=== PATIENT | female | born 1950 | race Caucasian/White ===

== ENCOUNTER 2017-03-11 10:12 | Outpatient (CLI) | payer MEDICARE, OTHER | END 2017-03-11 10:13 | disposition home or self-care (01) | DX: Z12.31 Encounter for screening mammogram for malignant neoplasm of breast (principal) ==

== ENCOUNTER 2018-04-12 10:46 | Outpatient (CLI) | payer MEDICARE, OTHER ==
[2018-04-12 11:14] LABS: BASOPHILS # (AUTO) 0.1 10^3/uL (0.0-0.1); BASOPHILS % (AUTO) 0.9 %; EOSINOPHILS # (AUTO) 0.1 10^3/uL (0.0-0.7); EOSINOPHILS % (AUTO) 1.5 %; HGB - HEMOGLOBIN 14.2 g/dL (12.0-16.0); LYMPHOCYTES # (AUTO) 1.6 10^3/uL (1.5-3.5); MEAN CORPUSCULAR HGB CONC 33.5 g/dL (32.0-36.0); MEAN CORPUSCULAR VOLUME 92.4 fL (81.0-99.0); MONOCYTES # (AUTO) 0.6 10^3/uL (0.0-1.0); MONOCYTES % (AUTO) 8.2 %; NEUTROPHILS % (AUTO) 67.4 %; PLT - PLATELET COUNT 260 10^3/uL (130-450); RED BLOOD COUNT 4.59 10^6/uL (4.20-5.40); RED CELL DISTRIBUTION WIDTH 14.1 % (12.0-15.0); WHITE BLOOD COUNT 7.4 x10^3/uL (4.8-10.8)
[2018-04-12 11:31] LABS: CREATININE,URINE 31.4 mg/dL
[2018-04-12 11:39] LABS: HB2 TOTAL 15.5 g/dL; HEMOGLOBIN A1C 0.9 g/dL; HEMOGLOBIN A1C % 7.5 % (4.6-6.2)
[2018-04-12 11:52] LABS: MICROALBUMIN,URINE < 0.3 mg/dL (0-300.0)
[2018-04-12 12:16] LABS: ALBUMIN 4.2 g/dL (3.2-5.5); ALBUMIN/GLOBULIN RATIO 1.4 (1.0-2.2); ALKALINE PHOSPHATASE 105 IU/L (42-121); ALT ALANINE AMINOTRANSFERASE 23 IU/L (10-60); AST ASPARTATE AMINOTRANSFERASE 23 IU/L (10-42); BILIRUBIN,TOTAL 0.7 mg/dL (0.2-1.0); BUN - BLOOD UREA NITROGEN 15 mg/dL (6-20); CALCIUM 9.4 mg/dL (8.5-10.3); CARBON DIOXIDE - CO2 25 mmol/L (21-32); CHLORIDE 100 mmol/L (101-111); CHOLESTEROL 229 mg/dL; CREATININE 0.5 mg/dL (0.4-1.0); GFR - MDRD 123 (>89); GLUCOSE 150 mg/dL (70-100); HDL CHOLESTEROL 46 mg/dL; LDL CHOLESTEROL,CALCULATED 137 mg/dL; SODIUM 135 mmol/L (135-145); TOTAL PROTEIN 7.1 g/dL (6.7-8.2); VLDL CHOLESTEROL 46 mg/dL
[2018-04-12 12:27] LABS: THYROID STIMULATING HORMONE 2.06 uIU/mL (0.34-5.60)
== END 2018-04-12 10:47 | disposition home or self-care (01) ==
LOC: LAB 10:46
PROVIDERS: ATTEND Internal Medicine
DX: E11.9 Type 2 diabetes mellitus without complications (principal); Z13.6 Encounter for screening for cardiovascular disorders; Z86.010 Personal history of colon polyps; H35.30 Unspecified macular degeneration; E78.5 Hyperlipidemia, unspecified; E53.8 Deficiency of other specified B group vitamins
CPT/HCPCS: 36415; 80053; 80061; 82043; 82570; 82607; 83036; 83721; 84443; 85025

== ENCOUNTER 2018-04-12 11:02 | Outpatient (CLI) | payer MEDICARE, OTHER ==
--- NOTE | 2018-04-13 13:37 | Mammography Report ---
DIGITAL SCREENING MAMMOGRAM: 04/12/2018 CLINICAL INDICATION: A 67-year-old for screening. COMPARISON: 02/2017, 09/2014. TECHNIQUE: Routine CC and MLO projections were obtained of the breasts. FINDINGS: Parenchymal tissue within the breasts is predominantly fatty replaced. There are no dominant masses, suspicious microcalcifications, or secondary signs of malignancy. In comparison to the previous studies, there are no significant changes. IMPRESSION: NO MAMMOGRAPHIC EVIDENCE OF MALIGNANCY. NO SIGNIFICANT INTERVAL CHANGES. RECOMMENDATION: Screening mammography is recommended annually. BIRADS CATEGORY 1 - NEGATIVE. STANDARD QUALIFYING STATEMENTS: 1. This examination was reviewed with the aid of Computed-Aided Detection (CAD). 2. A negative or benign imaging report should not delay biopsy if clinically suspicious findings are present. Consider surgical consultation if warranted. More than 5% of cancers are not identified by imaging. 3. Dense breasts may obscure an underlying neoplasm. TD: 04/13/2018 13:25
== END 2018-04-12 11:03 | disposition home or self-care (01) ==
LOC: DI 11:02
PROVIDERS: ATTEND Internal Medicine
DX: Z12.31 Encounter for screening mammogram for malignant neoplasm of breast (principal)
CPT/HCPCS: 77067

== ENCOUNTER 2019-05-17 13:46 | Outpatient (CLI) | payer MEDICARE, OTHER ==
--- NOTE | 2019-05-18 08:25 | Mammography Report ---
Reason: SCREENING MAMMO Procedure Date: 05/17/2019 Accession Number: [id number] / [id number] Procedure: IGNACIO - Screening Mammo w/Valente CPT Code: FULL RESULT: EXAM: Screening Mammo w/Valente DATE: 05/17/2019 2:45 PM CLINICAL HISTORY: Screening encounter. History of endometrial cancer. TECHNIQUE: (B) - Bilateral CC, laterally exaggerated CC, MLO views were obtained. COMPARISON: 04/12/2018 through 10/09/2014. PARENCHYMAL PATTERN: (A) - The breast(s) demonstrate(s) scattered fibroglandular densities. FINDINGS: Included in the field of view of the right MLO projection only, approximately 15 cm from nipple, which is not in profile, is a 5 mm isodense to breast parenchyma, well-circumscribed nodule, best seen on 3-D image 33 with imaging appearance suggestive of presence of a fatty hilum, not definitely established. Additional imaging by focused right breast ultrasound for characterization to confirm that this is indeed probably a benign intramammary lymph node is required as the finding is not seen on prior studies. There are no suspicious masses, calcifications, or areas of distortion in the left. IMPRESSION: Incomplete examination. BI-RADS category 0. RECOMMENDATION: (ADDUS) - Targeted ultrasound recommended. Right breast posterior central region as described above. BI-RADS CATEGORY: (0) - Incomplete Examination - need additional evaluation. STANDARD QUALIFYING STATEMENTS: 1. This examination was not reviewed with the aid of Computer-Aided Detection (CAD). 2. A negative or benign imaging report should not preclude biopsy if clinically suspicious findings are present. 3. Dense breasts may obscure an underlying neoplasm. 4. This examination was reviewed with the aid of 3D breast imaging (tomosynthesis).
== END 2019-05-17 13:47 | disposition home or self-care (01) ==
LOC: DI 13:46
PROVIDERS: ATTEND Internal Medicine
DX: Z12.31 Encounter for screening mammogram for malignant neoplasm of breast (principal)
CPT/HCPCS: 77063; 77067

== ENCOUNTER 2019-05-30 13:02 | Outpatient (CLI) | payer MEDICARE, OTHER ==
--- NOTE | 2019-05-30 16:52 | Ultrasound Report ---
Reason: ABNORMAL MAMMOGRAM Procedure Date: 05/30/2019 Accession Number: [id number] / [id number] Procedure: US - Breast Unilateral Limited CPT Code: FULL RESULT: EXAM: Breast Unilateral Limited DATE: 05/30/2019 1:53 PM CLINICAL HISTORY: ABNORMAL MAMMOGRAM COMPARISON: Previous mammograms dated 05/17/2019 through 10/09/2014. TECHNIQUE: Targeted ultrasound was performed of the posterior right breast. Color Doppler was employed as appropriate. FINDINGS: Despite careful scanning of all quadrants of the right breast, the mammographic finding is not replicated on ultrasound. This is compatible with the mammographic appearance of a probably benign lymph node. No suspicious mass, architectural distortion or vascularity is identified. IMPRESSION: Probable benign findings RECOMMENDATION: Recommend diagnostic right mammogram in 6 months. BIRADS CATEGORY 3 RADIA
== END 2019-05-30 13:03 | disposition home or self-care (01) ==
LOC: DI 13:02
PROVIDERS: ATTEND Internal Medicine
DX: R92.8 Other abnormal and inconclusive findings on diagnostic imaging of breast (principal)
CPT/HCPCS: 76642

== ENCOUNTER 2019-11-08 08:10 | Outpatient (CLI) | payer MEDICARE, OTHER ==
--- NOTE | 2019-11-08 10:11 | Mammography Report ---
Reason: ROUTINE MAMMO Procedure Date: 11/08/2019 Accession Number: [id number] / [id number] Procedure: IGNACIO - Diagnostic Dig RT CPT Code: Final Report FULL RESULT: EXAM: Diagnostic Dig RT DATE: 11/08/2019 9:20 AM CLINICAL HISTORY: Follow-up 5 mm nodule 15 cm from the nipple seen on 05/17/2019 TECHNIQUE: (R) - Right CC and MLO views were obtained. COMPARISON: 05/17/2019, 04/12/2018, 03/11/2017, 10/09/2014 PARENCHYMAL PATTERN: (A) - The breasts demonstrate scattered fibroglandular densities bilaterally. FINDINGS: The 5 mm nodule right upper outer quadrant approximately 15 cm from the nipple is unchanged compared with 05/17/2019 and 10/09/2014. There are no new suspicious masses, calcifications, or areas of distortion. IMPRESSION: Benign findings. BI-RADS category 2. Right breast RECOMMENDATION: (6MOS) - Recommend return to routine screening in 6 months . BI-RADS CATEGORY: (2) - Benign Findings. STANDARD QUALIFYING STATEMENTS: 1. This examination was not reviewed with the aid of Computer-Aided Detection (CAD). 2. A negative or benign imaging report should not preclude biopsy if clinically suspicious findings are present. 3. Dense breasts may obscure an underlying neoplasm. 4. This examination was reviewed with the aid of 3D breast imaging (tomosynthesis).
== END 2019-11-08 08:11 | disposition home or self-care (01) ==
LOC: DI 08:10
PROVIDERS: ATTEND Internal Medicine
DX: R92.8 Other abnormal and inconclusive findings on diagnostic imaging of breast (principal)

== ENCOUNTER 2023-01-28 15:25 | Emergency (ER) | payer MEDICARE, OTHER ==
[2023-01-28 15:48] LABS: BILIRUBIN,URINE NEGATIVE (NEGATIVE); GLUCOSE, URINE (UA) >=1000 mg/dL (NEGATIVE); KETONES,URINE (UA) NEGATIVE (NEGATIVE); LEUKOCYTE ESTERASE, URINE NEGATIVE (NEGATIVE); NITRITE,URINE NEGATIVE (NEGATIVE); OCCULT BLOOD,URINE NEGATIVE (NEGATIVE); PH,URINE 5.5 PH (5.0-7.5); PROTEIN,URINE NEGATIVE (NEGATIVE); UROBILINOGEN,URINE 0.2 (NORMAL) E.U./dL (NORMAL)
[2023-01-28 15:49] LABS: CLARITY,URINE CLEAR (CLEAR)
[2023-01-28] MEDS ORDERED: ONDANSETRON 4 MG/2 ML VIAL IVP STA (15:50)
[2023-01-28] MEDS ORDERED: HYDROmorphone 1 MG/ML CARPUJECT IVP STA (15:50)
[2023-01-28] MEDS ORDERED: KETOROLAC 15 MG/ML VIAL IVP STA (15:50)
[2023-01-28] MEDS ORDERED: iohexoL-300 100 ML VIAL ONE (16:03)
[2023-01-28 16:12] LABS: BASOPHILS % (AUTO) 0.3 %; EOSINOPHILS # (AUTO) 0.1 10^3/uL (0.0-0.7); EOSINOPHILS % (AUTO) 1.5 %; HCT - HEMATOCRIT 44.7 % (37.0-47.0); HGB - HEMOGLOBIN 14.6 g/dL (12.0-16.0); LYMPHOCYTES # (AUTO) 1.9 10^3/uL (1.5-3.5); LYMPHOCYTES % (AUTO) 27.2 %; MEAN CORPUSCULAR HGB CONC 32.7 g/dL (32.0-36.0); MEAN CORPUSCULAR VOLUME 91.8 fL (81.0-99.0); MEAN PLATELET VOLUME 9.6 fL (7.9-10.8); MONOCYTES # (AUTO) 0.6 10^3/uL (0.0-1.0); MONOCYTES % (AUTO) 8.2 %; NEUTROPHILS # (AUTO) 4.3 10^3/uL (1.5-6.6); NEUTROPHILS % (AUTO) 62.8 %; PLT - PLATELET COUNT 260 10^3/uL (130-450); RED BLOOD COUNT 4.87 10^6/uL (4.20-5.40); RED CELL DISTRIBUTION WIDTH 12.9 % (12.0-15.0); WHITE BLOOD COUNT 6.8 x10^3/uL (4.8-10.8)
--- NOTE | 2023-01-28 16:16 | ED Physician Documentation ---
PD HPI BACK PAIN - Stated complaint Stated Complaint: BACK PX - Chief complaint Chief Complaint: Back Pain - History obtained from History obtained from: Patient - History of Present Illness Timing - onset: How many hours ago (Patient had onset abruptly of right flank pain a few hours ago without any noted injury. She states she had done some lifting a few days ago but no pain at that time. No fall or impact. The pain is not changed with position, breathing, movement. She denies abdominal pain 2.) Timing - duration: Hours Timing - details: Abrupt onset, Still present Location: Lower, Right Quality: Pain, Spasm, Aching Associated symptoms: Other (nauseated with some vomiting.). No: Fever, Weakness, Numbness Improves with: No: Rest, Position Worsened by: No: Movement, Twisting Contributing factors: No: Trauma Similar symptoms before: Has not had sx before Review of Systems Constitutional: denies: Fever, Chills Cardiac: denies: Chest pain / pressure Respiratory: denies: Dyspnea, Cough Skin: denies: Rash, Lesions Neurologic: denies: Generalized weakness, Focal weakness, Numbness, Near syncope PD PAST MEDICAL HISTORY - Past Medical History Cardiovascular: Hypertension : Other (She denies history of kidney stones, aneurysms, gallbladder problems) - Present Medications Home Medications: Ambulatory Orders Medication Instructions Recorded Confirmed Oxycodone HCl/Acetaminophen 1 each PO Q4H PRN #10 tablet 01/28/23 [Percocet 5-325 mg Tablet] methocarbamoL [Robaxin] 500 mg PO Q6H PRN #15 tablet 01/28/23 - Allergies Allergies/Adverse Reactions: Allergies Allergy/AdvReac Type Severity Reaction Status Date / Time No Known Drug Allergies Allergy Verified 01/28/23 15:35 PD ED PE NORMAL - Vitals Vital signs reviewed: Yes - General General: Alert and oriented X 3, Well developed/nourished, Other (She is writhing nufq-iq-cldk on the cart with intermittent grimacing of worse pain. She has some moderate CVA tenderness on the right. No tenderness to just palpation. The abdomen is obese but soft and nontender. Femoral pulses are symmetric and normal.) - Cardiac Cardiac: RRR, No murmur - Respiratory Respiratory: Clear bilaterally - Abdomen Abdomen: Soft, Non tender - Back Back: No spinal TTP, Other (right CVA tender to percussion.) - Derm Derm: Normal color, Warm and dry - Extremities Extremities: No edema, No calf tenderness / cord - Neuro Neuro: Alert and oriented X 3, No motor deficit, No sensory deficit, Normal speech Results - Vitals Vitals: Vital Signs - 24 hr 01/28/23 01/28/23 01/28/23 15:31 15:46 17:42 Heart Rate 82 78 66 Respiratory 16 22 18 Rate Blood Pressure 205/87 H 192/85 H 158/62 H O2 Saturation 98 98 100 If not protocol 2 : Oxygen Flow, liters/minute Oxygen O2 Source Nasal cannula Oxygen Flow Rate 2 - Labs Labs: Laboratory Tests 01/28/23 01/28/23 01/28/23 15:38 16:07 16:07 WBC 6.8 RBC 4.87 Hgb 14.6 Hct 44.7 MCV 91.8 MCH 30.0 MCHC 32.7 RDW 12.9 Plt Count 260 MPV 9.6 Neut # (Auto) 4.3 Lymph # (Auto) 1.9 Kidder # (Auto) 0.6 Eos # (Auto) 0.1 Baso # (Auto) 0.0 Absolute Nucleated RBC 0.00 Nucleated RBC % 0.0 Sodium 137 Potassium 3.9 Chloride 102 Carbon Dioxide 24 Anion Gap 11.0 BUN 11 Creatinine 0.6 Estimated GFR (MDRD) 98 Glucose 303 H Calcium 9.5 Total Bilirubin 0.4 AST 29 ALT 35 Alkaline Phosphatase 110 Total Protein 7.0 Albumin 3.7 Globulin 3.3 Albumin/Globulin Ratio 1.1 Lipase 36 Urine Color LIGHT YELLOW Urine Clarity CLEAR Urine pH 5.5 Ur Specific [place] <=1.005 Urine Protein NEGATIVE Urine Glucose (UA) >=1000 H Urine Ketones NEGATIVE Urine Occult Blood NEGATIVE Urine Nitrite NEGATIVE Urine Bilirubin NEGATIVE Urine Urobilinogen 0.2 (NORMAL) Ur Leukocyte Esterase NEGATIVE Ur Microscopic Review NOT INDICATED Urine Culture Comments NOT INDICATED - Rads (name of study) bettye/pelvic CT Relevant Findings:: Prelim report reviewed, EMP independent interpretation of test (The CT scan showed prior cholecystectomy and changes consistent with Deisy-en-Y. No hydronephrosis and no ureteral stones identified. No other acute abnormality. Radiology report agrees.), See rad report PD Medical Decision Making - ED course Complexity details: reviewed results, considered differential (The patient has abrupt onset of severe right flank pain unchanged by movement and position. Associated with nausea. She has some flank tenderness. Most likely kidney stone but will get CT to evaluate for vascular or biliary causes as well.), d/w patient Reviewed Lab Results: Interestingly her CT scan did not show any acute abnormality. There were changes consistent with prior cholecystectomy and bypass surgery of the stomach. No hydronephrosis nor ureteral stones. She had fallen a few days ago and hurt the right lower back thoracic area but no obvious broken ribs. CT did not explain the symptoms. Urinalysis showed some glucose but no signs of blood or infection. The CBC and chemistry panels were ordered reviewed and normal with normal kidney function and normal white count. Drug Therapy Requiring Monitoring for Toxicity: She was in exquisite pain and so had an IV started by nursing staff and was given Toradol 15 mg as well as Dilaudid 1 mg and ondansetron for nausea. This did provide considerable relief in her symptoms within a few minutes. It was given IV. No side effects from them. The pain then resolved even better within about 15 or 20 minutes to essentially gone with just some mild ache. ED course: The patient had abrupt severe right flank pain that was unchanged with movement and position and she had a colicky pattern. The character and location seemed consistent with kidney stone. Other consideration would be vascular or aortic or intestinal. The CT scan appeared normal so does not really explain the symptoms. Her pain however had improved considerably and nearly gone after some IV medicines and prior to the CT scan. Consideration would be a small ureteral stone and kidney pain that passed between the time of medication and CT. She had not urinated in that time but it could be in the bladder and harder to identify. I think this explanation is more consistent with her to pattern of pain and now resolution. However consideration would be for muscular or musculoskeletal pain instead and as such she should have a backup plan with muscle relaxant and pain medicines in case. I wrote a prescription for some. Departure - Departure Disposition: 01 Home, Self Care Clinical Impression: Acute right flank pain Condition: Stable Record reviewed to determine appropriate education?: Yes Instructions: ED Acute Pain [facility] Follow-Up: Angi Scanlon MD [Primary Care Provider] - Prescriptions: Oxycodone HCl/Acetaminophen [Percocet 5-325 mg Tablet] 1 each PO Q4H PRN #10 tablet PRN Reason: pain methocarbamoL [Robaxin] 500 mg PO Q6H PRN #15 tablet PRN Reason: Spasms Comments: Your CT scan does not show any obvious acute abnormality to account for the pain. Your blood count and chemistry panel and urine test also are normal. At this point I do not have the answer of what the pain was from. Considerations with the above normal testing would be certainly things that would not show on that. Some of those would include muscular type pains such as muscle spasm related to the recent fall and injury. Could consider cartilage of the lower ribs shifting and hurting as well (there was no visible rib fractures on the CT scan). Other consideration and what I think may be the case would be a small kidney stone causing significant pain. The character and location of your pain would correspond with kidney stone type symptoms. It is possible that it may have passed into the bladder where it is harder to see prior to getting the CT scan. Given the uncertainty of the cause, would be wary of having return of symptoms. As such I wrote prescriptions for some muscle relaxant Robaxin and pain medicine (Percocet) to have on hand at home in case you have some symptoms back. Tylenol or ibuprofen for mild pains if needed. I sent your prescriptions to [email or web address] in [place] since the pharmacy here in [place] is already closed and the one in [place] will be closing within the hour. The [facility] tonight will be open till 9 PM. If you do not have any further symptoms, then that may be more confirmatory of a kidney stone that passed. I did not find in the drug references of metformin because in such an abrupt severe back pain but rather an aching type of one over a longer period of use. As such it may be reasonable to hold the metformin for several days and see if you are feeling okay and then resume it and see if any recurrent symptoms. I think it less likely that it will happen. I am prescribing a short course of narcotic pain medication for you. These are potentially dangerous and addictive medications that should be used carefully. These medications may constipate you. Take an yabw-nvg-vqdwrkt stool softener such as docusate twice daily with plenty of water while taking these medications. If you go 24 hours without a bowel movement, take yhqm-vym-usbjonp MiraLAX, per package instructions. Do not drink or drive while taking these medications. If you received narcotic or sedating medications while in the emergency department do not drive for 24 hours. Store this medication in a safe, secure place and out of reach of children. It is a violation of federal law to give or sell this medication to another person or to use in a manner other than prescribed. The ED will not refill narcotic prescriptions, including prescriptions lost or stolen. You can dispose of unwanted medications at the [facility]'s office or at several pharmacies such as [email or web address].
[2023-01-28 16:25] LABS: ALBUMIN 3.7 g/dL (3.2-5.5); ALBUMIN/GLOBULIN RATIO 1.1 (1.0-2.2); BILIRUBIN,TOTAL 0.4 mg/dL (0.2-1.0); CALCIUM 9.5 mg/dL (8.5-10.3); CREATININE 0.6 mg/dL (0.4-1.0); POTASSIUM 3.9 mmol/L (3.5-5.0)
[2023-01-28] MEDS ORDERED: iohexoL-300 100 ML VIAL IVP ONE (16:53)
--- NOTE | 2023-01-28 17:17 | CT Report ---
PROCEDURE: ABDOMEN/PELVIS W INDICATIONS: abrupt right flank pain today CONTRAST: 100mL Omni 300 TECHNIQUE: After the administration of intravenous contrast, 5 mm thick sections acquired from the diaphragms to the symphysis. 5 mm thick coronal and sagittal reformats were acquired. For radiation dose reducti on, the following was used: automated exposure control, adjustment of mA and/or kV according to jase ent size. COMPARISON: None. FINDINGS: Visualized lung bases: No pleural effusion. Liver and biliary tree: No suspect focal hepatic lesion. Nonspecific undulating contour of the liver without definitive capsular micronodularity. No biliary ductal dilation. Gallbladder: Absent. Spleen: Unremarkable. Pancreas: Unremarkable. Adrenal glands: Unremarkable. Kidneys and ureters: No hydronephrosis. 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 No evidence of mechanical small bowel obstruction. No evidence of acute appendicitis. Peritoneal cavity: No free air or substantial free fluid. Bladder: Unremarkable. Pelvic organs: Unremarkable CT appearance. Vasculature: No abdominal aortic aneurysm. Abdominal wall: Small fat-containing supraumbilical ventral hernia. Musculoskeletal: Degenerative change of the spine. IMPRESSION: 1. No acute appearing abnormality identified within the abdomen or pelvis. 2. Nonspecific undulating contour of the liver, no definite capsular micronodularity to raise high kruger spicion for cirrhosis is identified however clinical correlation for risk factors for cirrhosis and l iver function tests may be helpful. Reviewed by: Rhys Knight MD on 01/28/2023 5:16 PM PST Approved by: Rhys Knight MD on 01/28/2023 5:16 PM PST Station ID: [id number]
[2023-01-28 18:34] VITALS: BP 167/62
== END 2023-01-28 18:34 | disposition home or self-care (01) ==
LOC: ED 15:25
DX: R10.31 Right lower quadrant pain (principal); I10 Essential (primary) hypertension
CPT/HCPCS: 36415; 74177; 80053; 81003; 83690; 85025; 96374; 99284; J1170; Q9967; 81001; 87086

== ENCOUNTER 2023-02-09 13:47 | Outpatient (CLI) | payer MEDICARE, OTHER ==
--- NOTE | 2023-02-10 09:28 | Mammography Report ---
BILATERAL DIGITAL SCREENING MAMMOGRAM 3D/2D: 02/09/2023 CLINICAL: Routine screening. Comparison is made to exams dated: 10/09/2014 mammogram, 03/11/2017 mammogram, 04/12/2018 mammogram, mammogram, and 11/08/2019 mammogram - [facility]. Both breasts are almost entirely fatty (category a/<25% glandular tissue). No significant masses, calcifications, or other findings are seen in either breast. There has been no significant interval change. IMPRESSION: NEGATIVE There is no mammographic evidence of malignancy. A 1 year screening mammogram is recommended. Based on the Tyrer Cuzick model (a risk assessment model) the patients lifetime risk is 2.1% and her 10 year risk is 1.7%. According to the ACR, ACS, and NCCN guidelines, an annual breast MRI exam cordell g with mammogram is recommended if the patients lifetime risk is 20% or greater. This exam was interpreted at Station ID: [id number]. NOTE: For mammograms, a report in lay terms will be sent to the patient. Approximately 15% of breast malignancies will not be visualized mammographically. In the management of a palpable breast mass, a negative mammogram must not discourage biopsy of a clinically suspicious lesion. Electronically Signed By: Lisa rodriges/sixto:02/09/2023 17:11:17 letter sent: No_Letter ACR BI-RADS Category 1: Negative 3341F PARENCHYMAL PATTERN: (F) - The breast(s) demonstrate(s) diffuse fatty replacement. BI-RADS CATEGORY: (1) - 1 Mammogram [id number] 1 year screening LATERALITY: (B)
== END 2023-02-09 13:48 | disposition home or self-care (01) ==
LOC: DI 13:47
PROVIDERS: ATTEND Internal Medicine
DX: Z12.31 Encounter for screening mammogram for malignant neoplasm of breast (principal)

== ENCOUNTER 2023-10-10 07:13 | Emergency (ER) | payer MEDICARE, OTHER ==
--- NOTE | 2023-10-10 07:41 | ED Physician Documentation ---
PD HPI FOCAL NEURO - Stated complaint Stated Complaint: BODY PX - Chief complaint Chief Complaint: General - History obtained from History obtained from: Patient - Additional information Additional information: 73-year-old woman with history of hypertension and type 2 diabetes on oral meds only. About a week and a half ago she started develop strokelike symptoms, specifically she had trouble typing with both hands, some word finding difficulty and her right knee was giving out on her. It was associated with headaches. The last few days her symptoms have mostly resolved. She has no more headaches. She feels like the other symptoms are perhaps 90% better. PD PAST MEDICAL HISTORY - Past Medical History Past Medical History: Yes Cardiovascular: Hypertension : Other - Present Medications Home Medications: Ambulatory Orders Medication Instructions Recorded Confirmed Oxycodone HCl/Acetaminophen 1 each PO Q4H PRN #10 tablet 01/28/23 [Percocet 5-325 mg Tablet] methocarbamoL [Robaxin] 500 mg PO Q6H PRN #15 tablet 01/28/23 - Allergies Allergies/Adverse Reactions: Allergies Allergy/AdvReac Type Severity Reaction Status Date / Time No Known Drug Allergies Allergy Verified 10/10/23 07:37 - Social History Does the pt smoke?: No Smoking Status: Never smoker Does the pt drink ETOH?: No Does the pt have substance abuse?: No - Immunizations Immunizations are current?: Yes - POLST Patient has POLST: No PD ED PE NORMAL - Vitals Vital signs reviewed: Yes - General General: Alert and oriented X 3, No acute distress - HEENT HEENT: PERRL, EOMI - Cardiac Cardiac: RRR, No murmur - Respiratory Respiratory: No respiratory distress, Clear bilaterally - Abdomen Abdomen: Non tender - Neuro Neuro: Alert and oriented X 3, Normal speech - Psych Psych: Normal mood, Normal affect NIHSS - Time Time: 07:40 - Level of Consciousness Level of consciousness: (0) Alert, Keenly responsive LOC Questions: (0) Answers both Q's correct LOC Commands: (0) Performs both correctly - Gaze Best Gaze: (0) Normal - Visual Visual: (0) No loss - Facial Palsy Facial Palsy: (0) Normal, symmetrical movement - Motor Arms (both separate) Motor Arm (right): (0) No drift Motor Arm (left): (0) No drift - Motor Legs (both separate) Motor Leg (right): (0) No drift Motor Leg (left): (0) No drift - Limb Ataxia Limb Ataxia: (0) Absent - Sensory Sensory: (0) Normal - Best Language Best Language: (0) No aphasia - Dysarthria Dysarthria: (0) Normal - Extinction and Inattention (formally neg Extinction and inattention: (0) No abnormality - Total Score/Results Total Score/Result: 0 Results - Vitals Vitals: Vital Signs - 24 hr 10/10/23 07:30 Temperature 35.8 C L Heart Rate 91 Respiratory 20 Rate Blood Pressure 195/142 H O2 Saturation 99 Oxygen O2 Source Room air - EKG (time done) 0751 EKG releavant findings:: EKG personally interpreted by author of this note. Relevant findings are: Rate: Rate (enter#) (73) Rhythm: NSR Arco: Normal Intervals: Prolonged DE Ischemia: Normal ST segments, Q waves (infer/ant). No: ST elevation c/w ischemia, ST depression - Labs Labs: Laboratory Tests 10/10/23 10/10/23 10/10/23 07:50 07:50 07:50 WBC 8.2 RBC 4.88 Hgb 15.0 Hct 46.5 MCV 95.3 MCH 30.7 MCHC 32.3 RDW 13.2 Plt Count 267 MPV 9.4 Neut # (Auto) 5.9 Lymph # (Auto) 1.4 L Barry # (Auto) 0.7 Eos # (Auto) 0.2 Baso # (Auto) 0.0 Absolute Nucleated RBC 0.00 Nucleated RBC % 0.0 PT 12.8 H INR 1.2 Sodium 137 Potassium 3.3 L Chloride 101 Carbon Dioxide 27 Anion Gap 9.0 BUN 10 Creatinine 0.7 Estimated GFR (MDRD) 82 L Glucose 240 H Calcium 9.8 Total Bilirubin 0.5 AST 19 ALT 21 Alkaline Phosphatase 120 Total Protein 6.9 Albumin 4.4 Globulin 2.5 Albumin/Globulin Ratio 1.8 Lipase 43 - Rads (name of study) CT of the head without contrast is unremarkable Relevant Findings:: Final report received, EMP independent interpretation of test CTA of the head and neck is unremarkable. Relevant Findings:: Final report received, EMP independent interpretation of test PD Medical Decision Making - ED course ED course: 73-year-old woman with resolved strokelike symptoms. They lasted quite some time, over a week but no findings on CT/CTA. And normal exam now. She had stopped her lisinopril and recommended restarting as well as aspirin and primary care follow-up. CBC, CMP, INR normal save modest hyper glycemia and hypokalemia. Departure - Departure Disposition: Home, Self Care Clinical Impression: TIA (transient ischemic attack) Condition: Good Record reviewed to determine appropriate education?: Yes Instructions: ED Transient Ischemic Attack Comments: Thankfully your symptoms have resolved and there is no evidence of stroke or vascular narrowing on angiography CT. Does not rule out a small stroke, would recommend you restart your lisinopril and also take a baby aspirin a day. Call your doctor to arrange a follow-up appointment, make the next available appointment. In the interim, return anytime if worse or if new symptoms develop. Forms: PCP List
[2023-10-10 07:53] LABS: BASOPHILS % (AUTO) 0.4 %; EOSINOPHILS # (AUTO) 0.2 10^3/uL (0.0-0.7); EOSINOPHILS % (AUTO) 2.2 %; HCT - HEMATOCRIT 46.5 % (37.0-47.0); LYMPHOCYTES # (AUTO) 1.4 10^3/uL (1.5-3.5); LYMPHOCYTES % (AUTO) 16.8 %; MEAN CORPUSCULAR HEMOGLOBIN 30.7 pg (27.0-31.0); MEAN CORPUSCULAR HGB CONC 32.3 g/dL (32.0-36.0); MEAN CORPUSCULAR VOLUME 95.3 fL (81.0-99.0); MEAN PLATELET VOLUME 9.4 fL (7.9-10.8); MONOCYTES # (AUTO) 0.7 10^3/uL (0.0-1.0); NEUTROPHILS # (AUTO) 5.9 10^3/uL (1.5-6.6); NEUTROPHILS % (AUTO) 72.4 %; PLT - PLATELET COUNT 267 10^3/uL (130-450); RED BLOOD COUNT 4.88 10^6/uL (4.20-5.40); RED CELL DISTRIBUTION WIDTH 13.2 % (12.0-15.0); WHITE BLOOD COUNT 8.2 x10^3/uL (4.8-10.8)
[2023-10-10 08:04] LABS: INR 1.2 (0.8-1.2); PT - PROTHROMBIN TIME 12.8 secs (9.9-12.6)
[2023-10-10 08:11] LABS: ALBUMIN 4.4 g/dL (3.2-5.5); ALBUMIN/GLOBULIN RATIO 1.8 (1.0-2.2); BILIRUBIN,TOTAL 0.5 mg/dL (0.2-1.0); CALCIUM 9.8 mg/dL (8.5-10.3); CREATININE 0.7 mg/dL (0.6-1.3); POTASSIUM 3.3 mmol/L (3.5-4.5); TOTAL PROTEIN 6.9 g/dL (6.4-8.9)
[2023-10-10] MEDS ORDERED: SODIUM CHLORIDE 0.9% 1,000 ML IV STA (09:04)
--- NOTE | 2023-10-10 09:50 | CT Report ---
PROCEDURE: Head W/O Stroke Protocol INDICATIONS: Neuro deficit, acute, stroke suspected TECHNIQUE: Noncontrast 4.5 mm thick angled axial sections acquired from the foramen magnum to the vertex, with c oronal reformats. For radiation dose reduction, the following was used: automated exposure control, adjustment of mA and/or kV according to patient size. COMPARISON: None. FINDINGS: Image quality: Excellent. CSF spaces: Basal cisterns are patent. No extra-axial fluid collections. Ventricles are normal in size and shape. Brain: No midline shift. No intracranial masses or hemorrhage. Scanlon-white matter interface is norm al. Incidental note of parafalcine lipomas. Skull and face: Calvarium and visualized facial bones are intact, without suspicious lesions. Sinuses: Visualized sinuses and mastoids are clear. IMPRESSION: No acute intracranial pathology This study fulfills neurological imaging criteria for inclusion or exclusion of acute stroke therapie s based on available published neurological imaging guidelines. Reviewed by: Omar Ureña MD on 10/10/2023 8:48 AM [place] Approved by: Omar Ureña MD on 10/10/2023 8:48 AM [place] Station ID: [id number]
--- NOTE | 2023-10-10 09:56 | CT Report ---
PROCEDURE: CT Angio Head/Neck INDICATIONS: cva sx CONTRAST: 100ml omni 300 TECHNIQUE: After the administration of intravenous contrast, 1.5 mm axial sections acquired from the aortic arch to the [facility]. Coronal 3-D maximum intensity projection (MIP) and/or volume rendering ref ormats were then performed. For radiation dose reduction, the following was used: automated exposur e control, adjustment of mA and/or kV according to patient size. COMPARISON: CTA head from same date FINDINGS: Image quality: The initial contrast timing was nondiagnostic but the study was repeated however the i mages obtained from repeat bolus are contained within the head folder. This study has been interpret ed using both CTAs. Extensive in streak artifact through the shoulders Carotid system: The great vessels demonstrate a conventional anatomy as they arise from the aortic a rch. The origins of the common carotid arteries appear patent. The common carotid arteries demonstr ate normal calibers and courses. The bifurcation regions appear normal bilaterally. The internal ca rotid arteries demonstrate normal caliber and course. Posterior circulation: The origins of the vertebral arteries are not well evaluated. The more super ior portions of the vertebral arteries demonstrate normal course and caliber. They join to form a no rmal appearing basilar artery. 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 Anterior circulation: Intracranial internal carotid arteries are normal in size and flow. The flow within the paired anterior cerebral arteries is normal and symmetric. The flow within the middle cer ebral arteries is normal and symmetric. The anterior communicating artery is seen. No aneurysms are seen. Soft tissues: Visualized neck soft tissues demonstrate no suspicious abnormalities. The thyroid is normal in size and there are no incidental findings. Bones: No suspicious bony lesions. Visualized cervical spine appears normally aligned. IMPRESSION: No stenosis aneurysm or occlusion. Reviewed by: Omar Ureña MD on 10/10/2023 8:55 AM [place] Approved by: Omar Ureña MD on 10/10/2023 8:55 AM [facility] Station ID: [id number]
[2023-10-10 11:43] VITALS: BP 150/75; O2SAT 99
[2023-10-10] MEDS ORDERED: iohexoL-300 100 ML VIAL IVP ONE (13:00)
== END 2023-10-10 11:38 | disposition home or self-care (01) ==
LOC: ED 07:13
DX: G45.9 Transient cerebral ischemic attack, unspecified (principal); I10 Essential (primary) hypertension
CPT/HCPCS: 36415; 70450; 70496; 70498; 80053; 83690; 85025; 85610; 93005; 99284; Q9967

== ENCOUNTER 2023-10-25 09:31 | Outpatient (CLI) | payer MEDICARE, OTHER ==
[2023-10-25 10:07] LABS: ALBUMIN 4.3 g/dL (3.2-5.5); ALBUMIN/GLOBULIN RATIO 1.9 (1.0-2.2); ALKALINE PHOSPHATASE 113 IU/L (42-121); ALT ALANINE AMINOTRANSFERASE 20 IU/L (10-60); AST ASPARTATE AMINOTRANSFERASE 19 IU/L (10-42); BILIRUBIN,TOTAL 0.5 mg/dL (0.2-1.0); BUN - BLOOD UREA NITROGEN 8 mg/dL (6-20); CALCIUM 9.6 mg/dL (8.5-10.3); CARBON DIOXIDE - CO2 29 mmol/L (21-32); CHLORIDE 103 mmol/L (101-111); CHOL/HDL RATIO 2.5 (<4.4); CHOLESTEROL 116 mg/dL; CREATININE 0.6 mg/dL (0.6-1.3); GFR - MDRD 98 (>89); GLUCOSE 166 mg/dL (74-104); HDL CHOLESTEROL 46 mg/dL; LDL CHOLESTEROL,CALCULATED 37 mg/dL; LDL/HDL RATIO 0.8 (<4.4); POTASSIUM 3.1 mmol/L (3.5-4.5); SODIUM 140 mmol/L (135-145); TOTAL PROTEIN 6.6 g/dL (6.4-8.9); TRIGLYCERIDES 165 mg/dL (48-352); VLDL CHOLESTEROL 33 mg/dL
[2023-10-25 12:27] LABS: ESTIMATED AVERAGE GLUCOSE 171 mg/dL (70-100); HEMOGLOBIN A1c% 7.6 % (4.27-6.07)
== END 2023-10-25 09:32 | disposition home or self-care (01) ==
LOC: LAB 09:31
PROVIDERS: ATTEND Internal Medicine
DX: E11.9 Type 2 diabetes mellitus without complications (principal); E78.5 Hyperlipidemia, unspecified; I10 Essential (primary) hypertension; G45.9 Transient cerebral ischemic attack, unspecified
CPT/HCPCS: 36415; 80053; 80061; 83036; 83721

== ENCOUNTER 2024-01-11 15:08 | Outpatient (CLI) | payer MEDICARE, OTHER | END 2024-01-11 15:09 | disposition home or self-care (01) | LOC: DI 15:08 | PROVIDERS: ATTEND Internal Medicine | DX: G45.9 Transient cerebral ischemic attack, unspecified (principal); I11.9 Hypertensive heart disease without heart failure | CPT/HCPCS: 93307 ==